=== PATIENT | male | born 1995 | race Caucasian/White ===

== ENCOUNTER 2016-11-08 07:05 | Day surgery (SDC) | payer OTHER ==
[~2016-11-08 07:05] MED LIST: Lactated Ringers 1,000 ML IV SCH; Lidocaine 1% 4 ML ONE; Lidocaine 1%/Sod Bicarbonate in NS 8.4% 1 ML Syringe IV PRN; Midazolam 1 MG/ML 2 ML SDV ONE; Propofol 200 MG/20 ML SDV ONE; Sodium Chloride 0.9% 10 ML Syringe FLUSH PRN; fentaNYL 100 MCG/2 ML SDV ONE
--- NOTE | 2016-11-08 07:37 | PCM.PREANE ---
Preanesthetic Assessment - Procedure Proposed Procedure: Diagnostic colonoscopy and EGD - Anesthesia/Transfusion/Family Hx Anesthesia History: No Prior Anesthesia Family History of Anesthesia Reaction: Yes Transfusion History: No Prior Transfusion(s) Intubation History: Unknown - Review of Systems General: No Symptoms Pulmonary: No Symptoms Cardiovascular: No Symptoms Gastrointestinal: Diarrhea Neurological: No Symptoms Other: Reports: None - Physical Assessment NPO Status Date: 11/07/16 NPO Status Time: 18:00 Pulse: 71 O2 Sat by Pulse Oximetry: 96 Respiratory Rate: 16 Blood Pressure: 142/60 Temperature: 36.3 C Height: 1.85 m Weight: 138.799 kg ASA Class: 2 Mental Status: Alert & Oriented x3 Airway Class: Mallampati = 2 Dentition: Reports: Normal Dentition Thyro-Mental Finger Breadths: 3 Mouth Opening Finger Breadths: 3 ROM/Head Extension: Full Lungs: Clear to auscultation, Normal respiratory effort Cardiovascular: Regular Rate, Regular Rhythm - Allergies Allergies/Adverse Reactions: Allergies Allergy/AdvReac Type Severity Reaction Status Date / Time No Known Allergies Allergy Verified 11/07/16 14:50 - Blood Blood Available: No Product(s) Available: None - Acknowledgements Anesthesia Type Planned: MAC Pt an Appropriate Candidate for the Planned Anesthesia: Yes Alternatives and Risks of Anesthesia Discussed w Pt/Guardian: Yes Pt/Guardian Understands and Agrees with Anesthesia Plan: Yes PreAnesthesia Questionnaire - Past Health History Medical/Surgical History: Denies Medical/Surgical History - SUBSTANCE USE Smoking Status *Q: Never Smoker Second Hand Smoke Exposure: No Recreational Drug Use History: No - HOME MEDS Home Medications: Home Meds . [No Known Home Meds] 11/07/16 [History] - CURRENT (IN HOUSE) MEDS Current Meds: Current Medications Lactated Ringer's (Ringers, Lactated) 1,000 mls @ 125 mls/hr IV ASDIRECTED YOBANY Stop: 11/08/16 23:00 Lidocaine/Sodium Bicarbonate (Buffered Lidocaine 1% In Ns 8.4%) 0.25 ml IV ONETIME PRN PRN Reason: Prior to IV Start Stop: 11/08/16 18:00 Sodium Chloride (Saline Flush) 10 ml FLUSH ASDIRECTED PRN PRN Reason: Keep Vein Open Stop: 11/08/16 18:00 Discontinued Medications Fentanyl (Sublimaze) Confirm Administered Dose 100 mcg .ROUTE .STK-MED ONE Stop: 11/08/16 06:57 Lidocaine HCl (Xylocaine-Mpf 1%) Confirm Administered Dose 4 mls @ as directed .ROUTE .STK-MED ONE Stop: 11/08/16 06:58 Midazolam HCl (Versed 1 Mg/Ml) Confirm Administered Dose 2 mg .ROUTE .STK-MED ONE Stop: 11/08/16 06:58 Propofol (Diprivan 20 Ml) Confirm Administered Dose 200 mg .ROUTE .STK-MED ONE Stop: 11/08/16 06:57
[2016-11-08] MEDS ORDERED: Propofol 200 MG/20 ML SDV ONE (08:04)
--- NOTE | 2016-11-08 08:20 | PCM48HPAN ---
Post Anesthesia Note - EVALUATION WITHIN 48HRS OF ANESTHETIC Vital Signs in Normal Range: Yes Patient Participated in Evaluation: Yes Respiratory Function Stable: Yes Airway Patent: Yes Cardiovascular Function Stable: Yes Hydration Status Stable: Yes Pain Control Satisfactory: Yes Nausea and Vomiting Control Satisfactory: Yes Mental Status Recovered: Yes
--- NOTE | 2016-11-08 08:24 | PCM.OPNOTE ---
- General Post-Op/Procedure Note Date of Surgery/Procedure: 11/08/16 Operative Procedure(s): Esophagogastroduodenoscopy with biopsy. Colonoscopy with biopsy Findings: Gastritis, Healed Anal Fissure Pre Op Diagnosis: Change in bowel habits, chronic diarrhea, hematochezia Post-Op Diagnosis: Gastritis, Healed Anal Fissure Anesthesia Technique: MAC Primary Surgeon: Andre Calix EBL in mLs: 5 Complications: None Condition: Good Free Text/Narrative:: After patient gave verbal and written consent he was placed on blood pressure and pulse ox monitoring. He was given IV sedation which he tolerated well. The upper endoscope was easily passed into the oropharynx down the the 2nd portion of the duodenum. The views were excellent. 4 cold forceps biopsies were obtained in the 1st and 2nd portion of duodenum. The scope was then withdrawn into the stomach. Mild gastritis was noted. 4 cold forceps biopsies were obtained of stomach body and antrum. The scope was retroflexed and view was normal of apical stomach. The scope was straightened and the GE junction was visualized. This was normal. The scope was then brought into the mid esophagus. This was normal. THe scope was removed. The olympus colonoscope was then inserted per rectum and advanced to the cecum without difficulty. The ileocecal valve and appendiceal orfice were imaged documenting cecal intubation. The views were excellent. Multiple cold forceps biopsy was obtained of the entire colon. The mucosa appeared normal. THe scope was retroflexed in the rectum. On withdrawal a healed anal fissure was noted.
[2016-11-08 08:56] VITALS: BP 122/56
== END 2016-11-08 09:05 | disposition home or self-care (01) ==
LOC: JD.SDS 07:05 → EDSEX 08:00 → JD.SDS 09:05
PROVIDERS: ATTEND Family Medicine
DX: K29.70 Gastritis, unspecified, without bleeding (principal); R19.7 Diarrhea, unspecified; K92.1 Melena; R19.4 Change in bowel habit; Z79.899 Other long term (current) drug therapy
CPT/HCPCS: 43239; 45380; 88305; J2250; J3010; J7120; J2704

== ENCOUNTER 2020-11-29 18:36 | Emergency (ER) | payer BC, OTHER ==
[2020-11-29 18:54] VITALS: BP 170/114; PULSE 71
[2020-11-29] MEDS ORDERED: Ondansetron 4 MG/2 ML SDV IVPUSH ONE (19:12)
[2020-11-29] MEDS ORDERED: Sodium Chloride 0.9% 1,000 ML IV SCH (19:15)
--- NOTE | 2020-11-29 19:18 | EDM.PDOC ---
ED HPI GENERAL MEDICAL PROBLEM - General Chief Complaint: Abdominal Pain Stated Complaint: ABDOMINAL PAIN Time Seen by Provider: 11/29/20 18:53 Source of Information: Reports: Patient, RN Notes Reviewed History Limitations: Reports: No Limitations - History of Present Illness INITIAL COMMENTS - FREE TEXT/NARRATIVE: Patient is a 25-year-old male who presents to the ER for his abdomen pain. Patient states that this started yesterday, in the middle of his abdomen. He notes that he has not urinated in over 24 hours, and does not believe he has had a BM in over 36 hours. Patient states that he just does not feel the urge to urinate, he states he "feels dry". Notes that he was doing a fast or cleanse prior to the symptoms starting, and he had some tuna after the fast/cleanse and thought maybe he had some food poisoning, as he was nauseated and vomiting. He has tried some ibuprofen to help his pain however he has not taken any today, this is not really helped much when he did take it. He feels his abdomen is very distended, and he is "about ready to explode. Patient states now that the pain is worsening, and feels like his "kidneys are swelling". He has not had any fevers or chills, cough or shortness of breath. He denies any past medical history and takes no regular medications on a daily basis. Middle Abdomen Pain Score (Numeric/FACES): 8 - Related Data Allergies Allergy/AdvReac Type Severity Reaction Status Date / Time No Known Allergies Allergy Verified 11/29/20 18:54 Home Meds: Home Meds . [No Known Home Meds] 11/07/16 [History] Past Medical History - Past Health History Medical/Surgical History: Denies Medical/Surgical History Endocrine/Metabolic History: Reports: Obesity/BMI 30+ - Past Surgical History GI Surgical History: Reports: EGD Social & Family History - Tobacco Use Tobacco Use Status *Q: Never Tobacco User - Caffeine Use Caffeine Use: Reports: None - Recreational Drug Use Recreational Drug Use: Yes Recreational Drug Type: Reports: Marijuana/Hashish ED ROS GENERAL - Review of Systems Review Of Systems: Comprehensive ROS is negative, except as noted in HPI. ED EXAM, GI/ABD - Physical Exam Exam: See Below Exam Limited By: No Limitations General Appearance: Alert, WD/WN, No Apparent Distress Respiratory/Chest: No Respiratory Distress, Lungs Clear, Normal Breath Sounds, No Accessory Muscle Use, Chest Non-Tender Cardiovascular: Normal Peripheral Pulses, Regular Rate, Rhythm, No Edema GI/Abdominal Exam: Soft, Tender (LLQ/ periumbilical mainly), Abnormal Bowel Sounds (hypoactive tones x 4 quadrants) Extremities: Normal Inspection, Normal Capillary Refill Neurological: Alert, Oriented, Normal Cognition, No Motor/Sensory Deficits Psychiatric: Normal Affect, Normal Mood Skin Exam: Warm, Dry, Intact, Normal Color, No Rash Course - Vital Signs Last Recorded V/S: Last Vital Signs Temp 97.6 F 11/29/20 18:51 Pulse 71 11/29/20 18:51 Resp 16 11/29/20 18:51 BP 170/114 H 11/29/20 18:51 Pulse Ox 94 L 11/29/20 18:51 - Orders/Labs/Meds Labs: Laboratory Tests 11/29/20 11/29/20 11/29/20 Range/Units 19:30 19:30 20:56 WBC 15.86 H (4.23-9.07) K/mm3 RBC 5.12 (4.63-6.08) M/mm3 Hgb 15.5 (13.7-17.5) gm/dl Hct 44.9 (40.1-51.0) % MCV 87.7 (79.0-92.2) fl MCH 30.3 (25.7-32.2) pg MCHC 34.5 (32.2-35.5) g/dl RDW Std Deviation 42.0 (35.1-43.9) fL Plt Count 238 (163-337) K/mm3 MPV 9.8 (9.4-12.3) fl Neutrophils % (Manual) 74 H (40-60) % Band Neutrophils % 0 (0-10) % Lymphocytes % (Manual) 13 L (20-40) % Atypical Lymphs % 0 % Monocytes % (Manual) 13 H (2-10) % Eosinophils % (Manual) 0 L (0.8-7.0) % Basophils % (Manual) 0 L (0.2-1.2) Platelet Estimate Adequate RBC Morph Comment Normal Sodium 144 (136-145) mEq/L Potassium 3.4 L (3.5-5.1) mEq/L Chloride 105 (98-107) mEq/L Carbon Dioxide 27 (21-32) mEq/L Anion Gap 15.4 H (5-15) BUN 28 H (7-18) mg/dL Creatinine 6.1 H (0.7-1.3) mg/dL Est Cr Clr Drug Dosing 20.74 mL/min Estimated GFR (MDRD) 11 (>60) mL/min BUN/Creatinine Ratio 4.6 L (14-18) Glucose 111 H (70-99) mg/dL Calcium 8.4 L (8.5-10.1) mg/dL Total Bilirubin 0.4 (0.2-1.0) mg/dL AST 41 H (15-37) U/L ALT 65 H (16-63) U/L Alkaline Phosphatase 34 L (46-116) U/L C-Reactive Protein 6.3 H* (<1.0) mg/dL Total Protein 7.1 (6.4-8.2) g/dl Albumin 3.5 (3.4-5.0) g/dl Globulin 3.6 gm/dL Albumin/Globulin Ratio 1.0 (1-2) Lipase 102 (73-393) U/L Urine Color (Yellow) Urine Appearance (Clear) Urine pH (5.0-8.0) Ur Specific [place] (1.005-1.030) Urine Protein (Negative) Urine Glucose (UA) (Negative) Urine Ketones (Negative) Urine Occult Blood (Negative) Urine Nitrite (Negative) Urine Bilirubin (Negative) Urine Urobilinogen (0.2-1.0) Ur Leukocyte Esterase (Negative) Urine RBC (0-5) /hpf Urine WBC (0-5) /hpf Ur Squamous Epith Cells (0-5) /hpf Amorphous Sediment (NOT SEEN) /hpf Urine Bacteria (FEW) /hpf Urine Mucus (FEW) /hpf Influenza Type A RNA Negative (NEGATIVE) Influenza Type B RNA Negative (NEGATIVE) SARS-CoV-2 RNA (HUGO) Negative (NEGATIVE) 11/29/20 Range/Units 21:38 WBC (4.23-9.07) K/mm3 RBC (4.63-6.08) M/mm3 Hgb (13.7-17.5) gm/dl Hct (40.1-51.0) % MCV (79.0-92.2) fl MCH (25.7-32.2) pg MCHC (32.2-35.5) g/dl RDW Std Deviation (35.1-43.9) fL Plt Count (163-337) K/mm3 MPV (9.4-12.3) fl Neutrophils % (Manual) (40-60) % Band Neutrophils % (0-10) % Lymphocytes % (Manual) (20-40) % Atypical Lymphs % % Monocytes % (Manual) (2-10) % Eosinophils % (Manual) (0.8-7.0) % Basophils % (Manual) (0.2-1.2) Platelet Estimate RBC Morph Comment Sodium (136-145) mEq/L Potassium (3.5-5.1) mEq/L Chloride (98-107) mEq/L Carbon Dioxide (21-32) mEq/L Anion Gap (5-15) BUN (7-18) mg/dL Creatinine (0.7-1.3) mg/dL Est Cr Clr Drug Dosing mL/min Estimated GFR (MDRD) (>60) mL/min BUN/Creatinine Ratio (14-18) Glucose (70-99) mg/dL Calcium (8.5-10.1) mg/dL Total Bilirubin (0.2-1.0) mg/dL AST (15-37) U/L ALT (16-63) U/L Alkaline Phosphatase (46-116) U/L C-Reactive Protein (<1.0) mg/dL Total Protein (6.4-8.2) g/dl Albumin (3.4-5.0) g/dl Globulin gm/dL Albumin/Globulin Ratio (1-2) Lipase (73-393) U/L Urine Color Jayne H (Yellow) Urine Appearance Cloudy H (Clear) Urine pH 7.0 (5.0-8.0) Ur Specific [place] 1.015 (1.005-1.030) Urine Protein 3+ H (Negative) Urine Glucose (UA) Negative (Negative) Urine Ketones Trace H (Negative) Urine Occult Blood 3+ H (Negative) Urine Nitrite Negative (Negative) Urine Bilirubin 1+ H (Negative) Urine Urobilinogen 0.2 (0.2-1.0) Ur Leukocyte Esterase Trace H (Negative) Urine RBC Too numerous to cnt H (0-5) /hpf Urine WBC 5-10 H (0-5) /hpf Ur Squamous Epith Cells 5-10 H (0-5) /hpf Amorphous Sediment Many H (NOT SEEN) /hpf Urine Bacteria Few (FEW) /hpf Urine Mucus Few (FEW) /hpf Influenza Type A RNA (NEGATIVE) Influenza Type B RNA (NEGATIVE) SARS-CoV-2 RNA (HUGO) (NEGATIVE) Meds: Medications Discontinued Medications Generic Name Dose Route Start Last Admin Trade Name Freq PRN Reason Stop Dose Admin Diatrizoate Meglum/Diatrizoate Sod 120 ml 11/29/20 20:50 11/29/20 21:12 Diatrizoate Meglumine/Diatrizoate Sodium 37% 120 Ml Bottle PO 11/29/20 20:51 90 ml ONETIME ONE Administration Hydromorphone HCl 1 mg 11/29/20 20:50 11/29/20 20:54 Hydromorphone 1 Mg/Ml Syringe IVPUSH 11/29/20 20:51 1 mg ONETIME ONE Administration Sodium Chloride 1,000 mls @ 999 mls/hr 11/29/20 19:15 11/29/20 19:44 Normal Saline IV 999 mls/hr ASDIRECTED YOBANY Administration Sodium Chloride 1,000 mls @ 999 mls/hr 11/29/20 21:11 11/29/20 21:15 Normal Saline IV 11/29/20 22:11 999 mls/hr ONETIME ONE Administration Iopamidol 50 ml 11/29/20 20:50 11/29/20 21:12 Iopamidol 612 Mg/Ml 50 Ml Sdv IVPUSH 11/29/20 20:51 50 ml ONETIME ONE Administration Iopamidol 100 ml 11/29/20 20:50 11/29/20 21:12 Iopamidol 612 Mg/Ml 100 Ml Bottle IVPUSH 11/29/20 20:51 100 ml ONETIME ONE Administration Ondansetron HCl 4 mg 11/29/20 19:12 11/29/20 19:44 Ondansetron 4 Mg/2 Ml Sdv IVPUSH 11/29/20 19:13 4 mg ONETIME ONE Administration Sodium Chloride 10 ml 11/29/20 19:13 11/29/20 21:12 Sodium Chloride 0.9% 10 Ml Syringe FLUSH 10 ml ASDIRECTED PRN Administration Keep Vein Open Sodium Chloride 10 ml 11/29/20 21:00 Sodium Chloride 0.9% 10 Ml Syringe FLUSH ASDIRECTED [facility] - Re-Assessments/Exams Free Text/Narrative Re-Assessment/Exam: 11/29/20 19:17 Patient presents to the ER for his abdomen pain, we will go ahead and get IV started, get some basic labs, bladder scan, urinalysis and abdomen pelvis CT with IV and oral contrast, he will get some nausea medications for initial management. 11/29/20 22:17 Patient's laboratory evaluation demonstrates a mildly elevated white blood cell count of 15.86 with 74% neutrophils and no bands, metabolic panel is impressive for a mildly low potassium at 3.4, his BUN is elevated at twenty-eight, creatinine is elevated at 6.1, GFR is eleven, CRP is elevated as well at 6.3. CT demonstrated mild dilatation of both renal collecting systems and ureters with the exact etiology is indeterminate. The patient was able to start producing urine while in the ER, he has been given one full bag of fluids, and is on the second at this time. It does appear he has some sort of acute kidney injury versus renal failure, I did call [facility] in [place] for transfer, Dr. Jean graciously accepted at this time He will be transferred via BLS ambulance for acute kidney injury versus acute renal failure. Likely offending agent could be one of the items in the metabolic cleanse that he took prior to developing the abdomen pain. Departure - Departure Time of Disposition: 22:19 Disposition: DC/Tfer to Acute Hospital 02 Condition: Good Clinical Impression: Acute renal failure Qualifiers: Acute renal failure type: unspecified Qualified Code(s): N17.9 - Acute kidney failure, unspecified - Discharge Information *PRESCRIPTION DRUG MONITORING PROGRAM REVIEWED*: No *COPY OF PRESCRIPTION DRUG MONITORING REPORT IN PATIENT TARYN: No Referrals: PCP,None [Primary Care Provider] - Forms: ED Department Discharge Sepsis Event Note (ED) - Evaluation Sepsis Screening Result: No Definite Risk
[2020-11-29] MEDS: Sodium Chloride 0.9% 10 ML Syringe FLUSH PRN ×2 (19:44→21:12)
[2020-11-29] MEDS ORDERED: HYDROmorphone 1 MG/ML Syringe IVPUSH ONE (20:50)
[2020-11-29] MEDS ORDERED: Diatrizoate Meglumine/Diatrizoate Sodium 37% 120 ML Bottle PO ONE (20:50)
[2020-11-29] MEDS ORDERED: Iopamidol 612 MG/ML 100 ML Bottle IVPUSH ONE (20:50)
[2020-11-29] MEDS ORDERED: Iopamidol 612 MG/ML 50 ML SDV IVPUSH ONE (20:50)
[2020-11-29] MEDS ORDERED: Sodium Chloride 0.9% 10 ML Syringe FLUSH SCH (21:00)
[2020-11-29] MEDS ORDERED: Sodium Chloride 0.9% 1,000 ML IV ONE (21:11)
[2020-11-29 21:43] LABS: CORONAVIRUS COVID-19 NAA NEGATIVE (NEGATIVE)
--- NOTE | 2020-11-30 07:58 | CT ---
CT abdomen and pelvis Technique: Multiple axial sections were obtained from above the dome of the diaphragm inferiorly through the pubic symphysis. Intravenous and oral contrast was utilized. Delayed images were also obtained through the bladder. Reconstructed coronal and sagittal images were obtained. Comparison: No prior abdominal imaging is available. Findings: Visualized lung bases showed nothing acute. Liver shows diffuse decreased density compatible with fatty infiltration. Spleen size is normal. Adrenal glands show no nodule. No abnormality is appreciated within the pancreas. Gallbladder contains no calcified gallstones. Kidneys show symmetric contrast enhancement. Both kidneys appear to be slightly swollen. There is prominence of both ureters being seen with slight inflammatory type change noted around both ureters. No ureteral calcifications are seen. Renal findings raise the possibility of pyelonephritis. Abdominal aorta shows no aneurysm. No retroperitoneal adenopathy or mesenteric abnormalities are seen. No pelvic mass or adenopathy is noted. Lack of contrast is noted within the bladder on delayed images. Bone window settings were reviewed which show no acute osseous abnormality. Impression: 1. Both kidneys appear to be swollen with mild surrounding inflammatory change. Both ureters are prominent in size with no etiology seen to explain this increased in size. Findings raise the possibility of diffuse infection. Please correlate with the patient's symptoms. 2. Fatty infiltration within the liver. 3. No additional abnormality is appreciated on CT study of the abdomen and pelvis. Diagnostic code #3 I agree with preliminary report from [facility], finalized on 11/29/20, 10:54 PM CDT, code 1
== END 2020-11-29 23:15 ==
LOC: JD.ED 18:36
DX: N17.9 Acute kidney failure, unspecified (principal); E66.9 Obesity, unspecified; Z68.30 Body mass index [BMI] 30.0-30.9, adult; Z20.822 Contact with and (suspected) exposure to COVID-19
CPT/HCPCS: 0240U; 36415; 74177; 80053; 81001; 83690; 85007; 85027; 86140; 96374; 99285; J1170; J2405; J7030; Q9963; Q9967